=== PATIENT | male | born 1955 | race Caucasian/White ===

== ENCOUNTER 2017-07-21 07:54 | Observation (INO) ==
[2017-07-21] MEDS ORDERED: Ipratropium/Albuterol Neb 3 ML IH ONE ×2 (08:16→08:18)
[2017-07-21] MEDS ORDERED: methylPREDNISolone 125 MG/2 ML VIAL IVP ONE (08:18)
--- NOTE | 2017-07-21 08:26 | Emergency Department Note ---
Disposition Clinical Impression: Acute exacerbation of chronic obstructive airways disease, Thoracic aortic aneurysm Disposition: Admitted As Inpatient Condition: Fair Referrals: Jean Monaco MD [Primary Care Provider] - Forms: ED Satisfaction Letter Time of Disposition: 10:32 ([facility]) SOB HPI - General Chief Complaint: ED Shortness of Breath/Dyspnea Stated Complaint: SHORTNESS OF BREATH Time Seen by Provider: 07/21/17 08:00 Source: patient Mode of arrival: ambulatory Limitations: no limitations Nursing Notes Reviewed: Yes Vital Signs Reviewed: Yes - History of Present Illness Pt Subjective Complaint: shortness of breath Onset (ago): day(s) Severity: severe Consistency/Duration: constant Improves with: nothing Worsens with: exertion, movement Known history of: COPD Associated symptoms: Reports: wheezing. Denies: chest pain, pain with inspiration, fever, cough, sputum production, orthopnea, lower extremity pain, polyuria, polydipsia, parasthesias, palpitations, hemoptysis, diaphoresis, nausea/vomiting, syncope, abdominal pain, rash, sense of impending doom Treatment prior to arrival: none Cough present: No Sputum production: No - Related Data Home Medications Medication Instructions Recorded Confirmed Budesonide/Formoterol 160/4.5 2 puff IH BIDR 11/17/14 07/21/17 [Symbicort] Metformin [Glucophage] 500 mg PO BIDWM 11/17/14 07/21/17 Aspirin 81 mg PO DAILY 02/20/16 07/21/17 Lisinopril [Zestril] 5 mg PO DAILY 02/20/16 07/21/17 Pravastatin Sodium [Pravachol] 20 mg PO DAILY 02/20/16 07/21/17 Albuterol Sulfate [Proair Hfa] 2 puff IH Q4H PRN 07/21/17 07/21/17 Allergies Allergy/AdvReac Type Severity Reaction Status Date / Time No Known Allergies Allergy Verified 11/17/14 21:12 All systems ED: reviewed and negative except as stated. Review of Systems: As Per HPI Constitutional: Reports: weakness. Denies: fever, chills Eyes: Denies: eye pain, eye discharge ENT ED: Denies: ear pain, throat pain Cardiovascular: Denies: chest pain, palpitations Respiratory: Reports: wheezes. Denies: cough, dyspnea Gastrointestinal: Denies: abdominal pain, nausea Genitourinary: Denies: urgency, dysuria, frequency Musculoskeletal: Denies: back pain, neck pain, joint swelling Integumentary: Denies: rash, abrasion Neurological: Denies: headache, weakness, numbness Psychiatric: Denies: anxiety, depression Endocrine: Denies: fatigue, heat or cold intolerance Hematological/Lymphatic: Denies: easy bleeding Allergic/Immunologic: Denies: facial swelling Past Medical History - Past Medical History Attestation: Yes The following information was validated with the patient. Source: patient, old records reviewed, nursing notes reviewed Medical history: Reports: COPD, diabetes, hyperlipidemia, hypertension Surgical history: Reports: appendectomy, herniorrhaphy Psychiatric history: Reports: no psych history - Social History Smoking Status: Former smoker Smokeless Tobacco Status: Yes Alcohol use: Reports: none Drug use: Reports: none Physical Exam - General Limitations: no limitations General appearance: alert, anxious, in distress - Head Head exam: atraumatic, normocephalic, normal inspection - Eye Eye exam: Present: normal appearance, PERRL, EOMI - ENT ENT exam: normal exam, normal oropharynx, mucous membranes moist - Neck Neck exam: Present: normal inspection, full ROM, trachea midline. Absent: meningismus - Chest Chest inspection: Present: normal inspection, symmetric chest wall rise - Respiratory Respiratory exam: Present: wheezes, prolonged expiratory phase - Cardiovascular Cardiovascular exam: Present: regular rate, normal rhythm, normal heart sounds - Abdominal Exam Abdominal exam: Present: soft, Non-Tender, normal bowel sounds. Absent: mass, pulsatile mass - Extremities Exam Extremities exam: Present: normal inspection, full ROM, normal capillary refill. Absent: tenderness, pedal edema, joint swelling, calf tenderness - Expanded Lower Extremity Exam Neurovascular/Tendon exam: Present: normal capillary refill, normal fine/light touch Gait: observed and normal - Back Exam Back exam: Present: normal inspection, full ROM. Absent: muscle spasm - Neurological Exam Neurological exam: Present: alert, oriented X3, CN II-XII intact, normal gait - Psychiatric Psychiatric exam: Present: normal affect, normal mood - Skin Skin exam: Present: warm, dry, intact, normal color Course Course Narrative: Seen and examined multiple aerosol treatments Solu-Medrol started chest x-ray and labs obtained - Reevaluation(s) Reevaluation #1: Case discussed with Dr. Sebastián admitted for observation COPD exacerbation and despite repeated aerosols patient has still extremely tight to auscultation Vital Signs Temperature 97.9 F 07/21/17 07:55 Pulse Rate 95 07/21/17 07:55 Respiratory Rate 20 07/21/17 07:55 Blood Pressure 149/92 07/21/17 07:55 O2 Sat by Pulse Oximetry 93 07/21/17 07:55 Temperature 97.9 F 07/21/17 07:55 Pulse Rate 90 07/21/17 10:08 Respiratory Rate 20 07/21/17 10:15 Blood Pressure 110/88 07/21/17 10:08 O2 Sat by Pulse Oximetry 94 07/21/17 10:15 Oxygen Delivery Oxygen Delivery Room Air Shortness of Breath/Dyspnea - Differential Diagnosis Likely: acute exacerbation of chronic obstructive airways disease - Medical Records Medical records reviewed: Yes I reviewed the patient's medical records. - Lab Data Lab results reviewed: Yes I reviewed the patient's lab results. Result diagrams: 07/21/17 08:15 07/21/17 08:15 Lab Results 07/21/17 07/21/17 07/21/17 Range/Units 08:15 08:15 08:15 WBC 12.1 H (4.3-11.1) K/mcL RBC 5.07 (4.19-5.50) M/mcL Hgb 15.3 (12.9-16.9) g/dL Hct 45.2 (37.5-50.1) % MCV 89.2 (83.0-100.0) fL MCH 30.2 (28.0-33.3) pg MCHC 33.8 (31.6-35.5) g/dL RDW 12.0 (11.5-14.5) % Plt Count 232 (140-400) K/mcL MPV 10.6 (9.4-12.4) fL Immature Gran % 0.4 (0-4) % Seg Neutrophils % 69.9 % Lymphocytes % 14.7 % Monocytes % 6.1 % Eosinophils % 8.0 % Basophils % 0.9 % Neutrophils # 8.5 (1.6-8.9) K/mcL Lymphocytes # 1.8 (0.6-4.6) K/mcL Monocytes # 0.7 (0.0-1.3) K/mcL Eosinophils # 1.0 H (0.0-0.6) K/mcL Basophils # 0.1 (0.0-0.2) K/mcL PT 10.1 (9.4-12.1) Seconds INR 0.9 APTT 27.0 (26.0-36.0) Seconds Sodium 137 (136-145) mEq/L Potassium 3.8 (3.5-5.1) mEq/L Chloride 100 (98-107) mEq/L Carbon Dioxide 28 (23-29) mEq/L BUN 14 (8-23) mg/dL Creatinine 0.89 (0.70-1.30) mg/dL Est GFR ( Amer) > 60 (> 60) Est GFR (Non-Af Amer) > 60 (> 60) BUN/Creatinine Ratio 16 (6-26) Glucose 135 H (70-105) mg/dL Calculated Osmolality 287 (280-300) Calcium 9.9 (8.6-10.3) mg/dL Total Bilirubin 0.6 (0.3-1.0) mg/dL AST 14 (13-39) Units/L ALT 12 (7-52) Units/L Alkaline Phosphatase 58 (34-104) Units/L Troponin I < 0.03 (< 0.04) ng/mL Serum Total Protein 7.3 (6.4-8.9) g/dL Albumin 4.7 (3.5-5.7) g/dL Globulin 2.6 (2.4-3.5) g/dL Albumin/Globulin Ratio 1.8 (1.1-2.2) - Radiology Data Radiology results reviewed: Yes I reviewed the patient's radiology results. ITS Impressions Chest X-Ray 07/21/17 08:19 IMPRESSION: 1. Apparent prominence of the ascending thoracic aorta. 2. A small focal opacity seen projecting over the left mid lung 3. Sequelae of prior granulomatous disease. RECOMMENDATION: Consider further evaluation with CT. D/ / Polo Dey MD / Polo Dey MD Interpreting Provider: Polo Dey MD Chest CTA 07/21/17 08:44 IMPRESSION: 1. No evidence for acute pulmonary embolism. 2. Ectatic ascending thoracic aorta 4.1 cm in diameter. 3. Centrilobular emphysema. 4. Calcified 1 cm subpleural right lower lobe nodule. D/ / Waqas Ch MD / Waqas Ch MD Interpreting Provider: Waqas Ch MD - EKG Data EKG attestation: Yes I reviewed and interpreted this EKG. EKG results narrative: NSR 88 MS 157 QRS 100 QT 345 axis 14 Critical Care Time Critical Care Time: Yes Total Critical Care Time: 35 Attestation: Critical care performed: 35 minutes high probability of clinically significant life-threatening deterioration patient's condition as result of patient having significant dyspnea despite repeated aerosols due to the exacerbation of the COPD discussion with the hospitalist and the family but also finding incidental thoracic aortic aneurysm Time is exclusive of separately billable procedures. Time includes: direct patient care, patient reassessment, coordination of patient care, interpretation of data (laboratory data, radiology data, and respiratory data), review of patient's medical records, medical consultation and documentation of patient care. Procedures included in critical care time: Procedures excluded from critical care time:
[2017-07-21 08:30] LABS: Basophils # 0.1 K/mcL (0.0-0.2); Basophils % 0.9 %; Hematocrit 45.2 % (37.5-50.1); Hemoglobin 15.3 g/dL (12.9-16.9); Immature Granulocytes % 0.4 % (0-4); Lymphocytes # 1.8 K/mcL (0.6-4.6); Lymphocytes % 14.7 %; Mean Corpuscular HGB Conc 33.8 g/dL (31.6-35.5); Mean Corpuscular Hemoglobin 30.2 pg (28.0-33.3); Mean Corpuscular Volume 89.2 fL (83.0-100.0); Mean Platelet Volume 10.6 fL (9.4-12.4); Monocytes # 0.7 K/mcL (0.0-1.3); Monocytes % 6.1 %; Platelet Count 232 K/mcL (140-400); Red Blood Count 5.07 M/mcL (4.19-5.50); Segmented Neutrophils % 69.9 %
[2017-07-21] MEDS ORDERED: 0.9 % Sodium Chloride 1,000 ML IVC SCH ×2 (08:30→11:37)
[2017-07-21 08:42] LABS: INR 0.9; Prothrombin Time 10.1 Seconds (9.4-12.1)
[2017-07-21] MEDS ORDERED: Isovue-370 500 ML INFUS..BTL IV ONE ×2 (08:44→11:37)
[2017-07-21] MEDS ORDERED: Levofloxacin 500 MG/100 ML 500 MG/100 ML BAG IVPB ONE (08:45)
[2017-07-21 08:55] LABS: Neutrophils # 8.5 K/mcL (1.6-8.9); Troponin I < 0.03 ng/mL (< 0.04)
[2017-07-21 09:12] LABS: Alanine Aminotransferase 12 Units/L (7-52); Albumin 4.7 g/dL (3.5-5.7); Albumin/Globulin Ratio 1.8 (1.1-2.2); Alkaline Phosphatase 58 Units/L (34-104); Aspartate Amino Transferase 14 Units/L (13-39); BUN/Creatinine Ratio 16 (6-26); Bilirubin,Total 0.6 mg/dL (0.3-1.0); Blood Urea Nitrogen 14 mg/dL (8-23); Calcium 9.9 mg/dL (8.6-10.3); Carbon Dioxide 28 mEq/L (23-29); Chloride 100 mEq/L (98-107); Globulin 2.6 g/dL (2.4-3.5); Glucose 135 mg/dL (70-105); Osmolality,Calculated 287 (280-300); Potassium 3.8 mEq/L (3.5-5.1); Sodium 137 mEq/L (136-145); Total Protein 7.3 g/dL (6.4-8.9); eGFR For African Americans > 60 (> 60); eGFR For Non-African Americans > 60 (> 60)
[2017-07-21] MEDS ORDERED: Albuterol 2.5 MG/3 ML NEBULIZER IH STA (10:10)
[2017-07-21] MEDS ORDERED: D5% in Water 1,000 ML IVC PRN (11:37)
[2017-07-21] MEDS ORDERED: *HR* Dextrose 50 % in Water (Syg) 50 ML SYRINGE IVP PRN (11:37)
[2017-07-21] MEDS ORDERED: Dextrose Gel 15 GM/37.5 ML TUBE PO PRN ×2 (11:37)
[2017-07-21] MEDS ORDERED: Naloxone 0.4 MG/ML INJ IVP PRN (11:37)
[2017-07-21] MEDS: Ipratropium/Albuterol Neb 3 ML IH SCH ×3 (12:03→22:06)
[2017-07-21] MEDS: Insulin LISPRO 300 UNITS/3 ML VIAL SQ SCH ×2 (13:05→16:57)
[2017-07-21] MEDS: Albuterol 2.5 MG/3 ML NEBULIZER IH PRN (14:19)
--- NOTE | 2017-07-21 15:26 | Internal Med History&Physical ---
Date of Encounter: 07/21/17 Time of Encounter: 14:55 Assessment and Plan (1) Acute exacerbation of chronic obstructive airways disease Current visit: Yes Status: Acute He was started on IV Levaquin and Solu-Medrol in emergency room. Will continue antibiotics and steroids with lactobacillus (2) Hypertension Current visit: Yes Status: Chronic Continue lisinopril and monitor blood pressure. Qualifiers: Hypertension type: essential hypertension Qualified Code(s): I10 - Essential (primary) hypertension (3) DM type 2 (diabetes mellitus, type 2) Current visit: Yes Status: Acute Continue metformin and monitor Accu-Cheks with SSI. Qualifiers: Diabetes mellitus rn long term care insulin use: without fci use Diabetes mellitus complication status: without complication Qualified Code(s): E11.9 - Type 2 diabetes mellitus without complications (4) Thoracic aortic aneurysm Current visit: Yes Status: Chronic CTA of chest showed 4.1 cm ascending thoracic aneurysm. He can follow up with vascular surgeon as an outpatient. Qualifiers: Presence of rupture: without rupture Qualified Code(s): I71.2 - Thoracic aortic aneurysm, without rupture Internal Medicine - H&P: HPI Chief complaint: Dyspnea Admitted From: Emergency Dept Plans for Post Hospital Care: Home History of present illness: Mr. Callejas is a 62 year old male who came to emergency room complaining of dyspnea increased over the past 2 weeks with further worsening within the last 24 hours. Reports cough with minimal productivity. There was no chest pain associated. He was evaluated in emergency room and felt to have exacerbation of COPD. He was admitted to [facility] floor for ongoing care needs. He has smoked since age 11 up to 3 packs per day. He reports PFTs done in 2016 showed COPD. He wears oxygen at bedtime and when necessary during the daytime. He reports an unremarkable sleep study in the past. Past Med Surg Social Fam HX - Past Medical History Medical history: COPD, diabetes, hyperlipidemia, hypertension Psychiatric history: no psych history - Past Surgical History Surgical History: appendectomy, herniorrhaphy - Social History Smoking Status: Former smoker Smokeless Tobacco Status: Yes Alcohol use: none Drug use: none - Family History Mother Adopted: [place]: Juliane George Age: 80 Family Member Ethnicity: Non- Living Status: Still Living Hx Family Cardiac Disorders: Yes (AAA) Hx Family Cancer: Yes (Breast cancer) Internal Medicine - H&P: Meds Budesonide/Formoterol 160/4.5 [Symbicort] 2 puff IH BIDR 11/17/14 [History] Metformin [Glucophage] 500 mg PO BIDWM 11/17/14 [History] Aspirin 81 mg PO DAILY 02/20/16 [History] Lisinopril [Zestril] 5 mg PO DAILY 02/20/16 [History] Pravastatin Sodium [Pravachol] 20 mg PO DAILY 02/20/16 [History] Albuterol Sulfate [Proair Hfa] 2 puff IH Q4H PRN 07/21/17 [History] 3 Allergy/AdvReac Type Severity Reaction Status Date / Time No Known Allergies Allergy Verified 11/17/14 21:12 All Systems PM: A 10-system review of systems was performed and is negative for pertinent findings except as documented above in the HPI. Review of systems: Gen.: He states his weight has been stable the past few months Cardiovascular: He has history of hypertension but denies PR heart failure angina DVT or pulmonary embolus. He reports an unremarkable EST in 2014 Respiratory: As per history of present illness GI: He has had dysphagia and states he is scheduled for an EGD in the near future. He denies disorders of his liver gallbladder or exocrine pancreas : Denies hematuria dysuria or kidney stones Neurologic: He denies large distribution strokes or seizures. Endocrine: He was diagnosed with DM 2 approximately 2014. He has hyperlipidemia but denies thyroid disease Hematology/oncology: Denies blood disorders cancers or anemia Psychiatric: He denies anxiety depression or other mental health issues [place] skeletal: He denies arthritis gout or other bone joint or muscle disorders. - Constitutional Vitals: Temp Pulse Resp BP Pulse Ox 98.6 F 90 24 145/81 92 07/21/17 11:37 07/21/17 11:37 07/21/17 14:19 07/21/17 11:37 07/21/17 14:19 Exam: Gen.: He is a well-developed well-nourished male lying in bed who appears slightly dyspneic HEENT: Head is atraumatic and normocephalic. Eyes: EOMI. There is no scleral icterus. Mouth: Mucosa is moist. Neck: Supple and nontender. There is no thyromegaly or adenopathy noted Heart: Regular without murmurs gallops or ectopics Lungs: He has prolonged expiratory phase and mild diffuse wheezing. No inspiratory crackles are heard. Abdomen: Soft and nontender. No masses or guarding are noted. Extremities: There is no cyanosis edema or clubbing noted. Dorsalis pedis and posttibial pulses are 1-2 over 2 bilaterally. Neurologic: Mental status: He is talkative and a good historian. Cranial nerves : Smile is symmetric. Forehead wrinkles bilaterally. Tongue protrudes midline. EOMI. Motor: There is no pronator drift. Cerebellar: Finger to nose is intact bilaterally. Skin: Warm and dry Internal Med - H&P Results - Labs CBC & Chem 7: 07/21/17 08:15 07/21/17 08:15
--- NOTE | 2017-07-21 20:39 | Electrocardiograph Report ---
[address] [address] Test Date: 2017-07-21 Pat Name: Piotr Callejas Department: [id number] Room: [facility] Gender: M It Coordinator: [id number] : 1955 Requested By: Diana Hernández Order Number: [id number] Reading MD: Anup Loera Measurements Intervals [place] Rate: 88 P: 45 NE: 157 QRS: 14 QRSD: 100 T: 64 QT: 345 QTc: 390 Interpretive Statements SINUS RHYTHM Electronically Signed On 07-21-2017 20:38:09 EDT by Anup Loera
[2017-07-21] MEDS: Budesonide/Formoterol 160/4.5 MDI IH SCH (22:07)
[2017-07-22] MEDS: Albuterol 2.5 MG/3 ML NEBULIZER IH PRN ×2 (00:30→07:51)
[2017-07-22] MEDS: Ipratropium/Albuterol Neb 3 ML IH SCH ×2 (04:04→10:25)
[2017-07-22 06:07] LABS: Basophils # 0.1 K/mcL (0.0-0.2); Basophils % 0.9 %; Eosinophils % 10.8 %; Hematocrit 38.6 % (37.5-50.1); Hemoglobin 12.9 g/dL (12.9-16.9); Immature Granulocytes % 0.2 % (0-4); Lymphocytes % 21.6 %; Mean Corpuscular HGB Conc 33.4 g/dL (31.6-35.5); Mean Corpuscular Hemoglobin 30.1 pg (28.0-33.3); Mean Platelet Volume 10.5 fL (9.4-12.4); Monocytes # 0.8 K/mcL (0.0-1.3); Monocytes % 8.6 %; Neutrophils # 5.3 K/mcL (1.6-8.9); Platelet Count 186 K/mcL (140-400); Red Blood Count 4.29 M/mcL (4.19-5.50); Red Cell Distribution Width 12.2 % (11.5-14.5); Segmented Neutrophils % 57.9 %
[2017-07-22 06:29] LABS: BUN/Creatinine Ratio 13 (6-26); Blood Urea Nitrogen 12 mg/dL (8-23); Calcium 9.1 mg/dL (8.6-10.3); Carbon Dioxide 30 mEq/L (23-29); Chloride 104 mEq/L (98-107); Glucose 136 mg/dL (70-105); Osmolality,Calculated 290 (280-300); Potassium 3.9 mEq/L (3.5-5.1); Sodium 139 mEq/L (136-145); eGFR For African Americans > 60 (> 60); eGFR For Non-African Americans > 60 (> 60)
[2017-07-22 07:07] VITALS: BP 119/82
[2017-07-22] MEDS ORDERED: predniSONE 20 MG TABLET PO SCH (09:00)
[2017-07-22] MEDS ORDERED: Aspirin 81 MG TAB.CHEW PO SCH (09:00)
[2017-07-22] MEDS ORDERED: Levofloxacin 500 MG/100 ML 500 MG/100 ML BAG IVPB SCH (09:00)
--- NOTE | 2017-07-22 09:55 | Discharge Summary ---
Date of Encounter: 07/22/17 Time of Encounter: 09:45 - Discharge Diagnosis (1) Acute exacerbation of chronic obstructive airways disease Priority: Primary Status: Acute (2) Hypertension Priority: Secondary Status: Chronic Qualifiers: Hypertension type: essential hypertension Qualified Code(s): I10 - Essential (primary) hypertension (3) DM type 2 (diabetes mellitus, type 2) Priority: Secondary Status: Acute Qualifiers: Diabetes mellitus termite treater helper insulin use: without termite treater helper use Diabetes mellitus complication status: without complication Qualified Code(s): E11.9 - Type 2 diabetes mellitus without complications (4) Thoracic aortic aneurysm Priority: Secondary Status: Chronic Qualifiers: Presence of rupture: without rupture Qualified Code(s): I71.2 - Thoracic aortic aneurysm, without rupture Hospital course: Mr. Callejas is a 62 year old male who came to emergency room complaining of dyspnea increased over the past 2 weeks with further worsening within the last 24 hours. Reports cough with minimal productivity. There was no chest pain associated. He was evaluated in emergency room and felt to have exacerbation of COPD. He was admitted to [facility] for ongoing care needs. Initial orders were written by the emergency room physician. I saw him on July 21 and performed the history and physical. He was given IV Levaquin and Solu- Medrol in emergency room. By the following day his wheezing had resolved and he fell clinically improved and stable for discharge home. He will continue with antibiotic, probiotic, Tessalon, and prednisone for 3 additional days at discharge. He will reported he was not using Symbicort stating he could not afford the prescription. I prescribed Dulera. His PCP can follow up on the 4.1 cm ascending thoracic aortic aneurysm. He will be discharged home and follow with his PCP within 1 week. - Time Spent with Patient Total time spent providing and/or coordinating discharge services: - Discharge Medications Prescriptions: Benzonatate [Tessalon] 100 mg PO TID #9 capsule Lactobacillus [Culturelle] 1 each PO BID #6 cap.sprink levoFLOXacin [Levaquin] 500 mg PO DAILY #3 tablet Mometasone/Formoterol [Dulera 100 Mcg/5 Mcg Inhaler] 13 gm IH BID #1 hfa.aer.ad predniSONE [PredniSONE] 10 mg PO BIDWM #6 tablet Home Medications: Metformin [Glucophage] 500 mg PO BIDWM 11/17/14 [History] Aspirin 81 mg PO DAILY 02/20/16 [History] Lisinopril [Zestril] 5 mg PO DAILY 02/20/16 [History] Pravastatin Sodium [Pravachol] 20 mg PO DAILY 02/20/16 [History] Albuterol Sulfate [Proair Hfa] 2 puff IH Q4H PRN 07/21/17 [History] Benzonatate [Tessalon] 100 mg PO TID #9 capsule 07/22/17 [Rx] Lactobacillus [Culturelle] 1 each PO BID #6 cap.sprink 07/22/17 [Rx] Mometasone/Formoterol [Dulera 100 Mcg/5 Mcg Inhaler] 13 gm IH BID #1 hfa.aer.ad 07/22/17 [Rx] levoFLOXacin [Levaquin] 500 mg PO DAILY #3 tablet 07/22/17 [Rx] predniSONE [PredniSONE] 10 mg PO BIDWM #6 tablet 07/22/17 [Rx] Allergies/Adverse Reactions: 3 Allergy/AdvReac Type Severity Reaction Status Date / Time No Known Allergies Allergy Verified 11/17/14 21:12 Date of admission: 07/21/17 11:09 Primary care physician: Jean Monaco MD - Constitutional Vitals: Temp Pulse Resp BP Pulse Ox 98.8 F 73 17 119/82 96 07/22/17 07:04 07/22/17 07:04 07/22/17 07:04 07/22/17 07:04 07/22/17 07:04 - Patient Status Disposition: Home, Self-Care Condition: Fair Overall status at discharge: patient is progressing back to baseline - Discharge Instructions Follow Up With: Jean Monaco MD [Primary Care Provider] - 1 week - Diet and Activity Activity: resume usual activities as tolerated Diet: diabetic diet
[2017-07-22] MEDS: Budesonide/Formoterol 160/4.5 MDI IH SCH (10:34)
== END 2017-07-22 11:00 | disposition home or self-care (01) ==
LOC: EMEROOPIK 07:54 → INPPIK 07:54
PROVIDERS: ADMIT Internal Medicine; ATTEND Internal Medicine